=== PATIENT | male | born 1995 | race Caucasian/White ===

== ENCOUNTER 2016-12-12 21:31 | Emergency (ER) | payer SELFPAY ==
[~2016-12-12] VITALS: Ht 165.1 cm; Wt 75.5 kg
[2016-12-12 21:33] VITALS: Ht 165.1 cm; Wt 75.5 kg
[2016-12-13] MEDS ORDERED: IBUP-1542 PO (11:57)
== END 2016-12-12 22:27 | disposition left against medical advice (07) ==
LOC: FTE 21:31 → E/R 22:27
DX: Z53.21 Procedure and treatment not carried out due to patient leaving prior to being seen by health care provider (principal)

== ENCOUNTER 2016-12-13 10:25 | Emergency (ER) | payer OTHER ==
[~2016-12-13] VITALS: Wt 72.0 kg
[2016-12-13] MEDS ORDERED: LIDOCAINE 1%/EPI (MDV) 20 ML INJ SC ONE (11:30)
[2016-12-13] MEDS ORDERED: DIPHTH/TET/ACEL PERTUSS (ADULT) 0.5 ML VIAL IM* ONE (11:30)
[2016-12-13] MEDS ORDERED: IBUP-1542 PO (11:57)
--- NOTE | 2016-12-13 12:06 | ERD ---
ER Documentation Chief Complaint Date/Time DATE: 12/13/16 TIME: 11:58 Chief Complaint LACERATION ON CHIN, HAPPENED LAST NIGHT S/P GLF, NO KO HPI Patient is to 21-year-old male who came into the ER for a lacerations of chin. Patient was coming out of the shower and slipped and hit his chin on the toilet head at around 5 PM yesterday. Patient denies any loss of consciousness, dizziness, headache, eye disturbances. Denies any fever or purulent drainage from the laceration site. Patient also chipped a small portion of his frontal tooth that his implanted. He is unable to recall his last tetanus shot. ROS All systems reviewed and are negative except as per history of present illness. Medications Home Meds Active Scripts Ibuprofen* (Motrin*) 600 Mg Tab, 600 MG PO Q6H Y for PAIN AND OR ELEVATED TEMP, #30 TAB Prov:YANELILUPILLO 12/13/16 Allergies Allergies: Coded Allergies: No Known Allergies (Verified Allergy, Mild, 12/12/16) PMhx/Soc History of Surgery: No Anesthesia Reaction: No Hx Neurological Disorder: No Hx Respiratory Disorders: No Hx Cardiac Disorders: No Hx Psychiatric Problems: No Hx Miscellaneous Medical Probl: No Hx Alcohol Use: No Hx Substance Use: No Hx Tobacco Use: No Smoking Status: Never smoker Physical Exam Vitals Vital Signs Date Time Temp Pulse Resp B/P Pulse Ox O2 Delivery O2 Flow Rate FiO2 12/13/16 10:26 98.2 78 17 119/69 98 Physical Exam Physical Exam CONST: Well-developed, well-nourished, in no acute distress. Nontoxic in appearance. HEENT: Chipped area noted on the left upper frontal teeth. Atraumatic. Normal Conjunctiva. EOM intact. TM intact. External ear is normal. Clear oropharnyx without erythema. No Uvular deviation. Moist mucous membranes. Supple neck. No meningismus. No submandibular induration. RESP: Clear to auscultation bilaterally. No wheezing. CARDIO: Regular rate and rhythm, no murmurs. ABD: Soft, non tender, non distended. Normal bowel sounds. No McBurney's point tenderness. No guarding or rigidity. No peritoneal signs. SKIN: Approximately 2 cm vertical laceration on his chin area with minimal oozing. BACK: No midline or flank tenderness. EXT: No cyanosis or edema. Distal pulses equal and bilateral. NEURO: Awake and alert, appropriate for age Results 24 hrs Current Medications Medications (Trade) Dose Ordered Sig/Divine Route PRN Reason Start Time Stop Time Status Last Admin Dose Admin Diphtheria/ Tetanus/Acell Pertussis (Adacel) 0.5 ml ONCE ONCE IM* 12/13/16 11:30 12/13/16 11:31 DC 12/13/16 11:35 Lidocaine/ Epinephrine (Xylocaine 1%/ Epi (Mdv) 20 ml) 20 ml ONCE ONCE SC 12/13/16 11:30 12/13/16 11:31 DC Procedures/MDM EMERGENCY DEPARTMENT COURSE/MEDICAL DECISION MAKING This is a 21-year-old male who comes to the emergency room secondary to a chin laceration. The patient was given Tdap in the department. Laceration Repair by me: Anesthesia: 1% lidocaine with epinephrine locally Location: Chin Tendon/Joint/Nerves: No injury Foreign body: None detected after copious irrigation and exploration Technique: 3 simple Interrupted Sutures Complexity: No subcutaneous sutures/mucosal repair/ edge excision Post Closure Length: 2.5 cm Patient's bleeding was easily controlled in the department and there is no indication of anemia. No evidence of compartment syndrome, neurologic injury, vascular injury, open joint, tendon laceration, or foreign body. Patient is appropriate for outpatient follow up. 48 hour wound check. Scar minimization instructions given. Pt is hemodynamically stable upon reassessment. The patient was discharged for outpatient management with a prescription for ibuprofen. Patient was instructed to return to the emergency department in 48 hours for a wound check and in 7-10 days for suture removal. The patient was advised to followup with their PMD in 1-2 days and to return to the Emergency Department if there are any new or worsening symptoms. The patient understood and agreed with the diagnosis, treatment and plan. Patient is stable for discharge at this time. Departure Diagnosis: Primary Impression: Laceration Condition: Stable Patient Instructions: Laceration, Face (Suture Or Tape) Referrals: JAYLA MAYER (PCP) Additional Instructions: Return to the ER in 2 days for wound check. Return to ER in 7-10 days for suture removal. Follow-up with your primary care physician in 1-2 days. Return to the emergency department immediately should you have any new or worsening symptoms, uncontrolled fevers, or other unexplained symptoms. Take all medications as directed. LUPILLO GROVES Dec 13, 2016 12:06
== END 2016-12-13 12:06 | disposition home or self-care (01) ==
LOC: FTE 10:25
DX: S01.81XA Laceration without foreign body of other part of head, initial encounter (principal); W22.8XXA Striking against or struck by other objects, initial encounter; Y92.9 Unspecified place or not applicable; Z23 Encounter for immunization
CPT/HCPCS: 12011; 90471; 90715; Z7502; Z7610